=== PATIENT | female | born 1950 | race Caucasian/White ===

== ENCOUNTER 2017-11-05 13:48 | Outpatient (CLI) | payer MEDICARE ==
[2017-11-05] MEDS ORDERED: LEVO75TA PO (14:52)
[2017-11-05] MEDS ORDERED: BIOT5000 PO (14:52)
[2017-11-05] MEDS ORDERED: OMEP20TA5 PO (14:52)
[2017-11-05] MEDS ORDERED: ERGO500014 PO (14:52)
[2017-11-05] MEDS ORDERED: BUPR150T8 PO (14:52)
[2017-11-05] MEDS ORDERED: HERBAL VITAMINS PO (14:52)
[2017-11-05 15:12] LABS: BASOPHILS % (AUTO) 0.5 % (0-1); EOSINOPHILS # (AUTO) 0.4 X10'3 (0-0.9); EOSINOPHILS % (AUTO) 6.3 % (0-6); LYMPHOCYTES # (AUTO) 3.1 X10'3 (1.1-4.8); LYMPHOCYTES % (AUTO) 50.5 % (21-51); MEAN CORPUSCULAR HEMOGLOBIN 31.2 PG (27.0-31.0); MEAN CORPUSCULAR HGB CONC 34.2 % (33.0-36.5); MEAN CORPUSCULAR VOLUME 91.2 FL (78-98); MEAN PLATELET VOLUME 8.2 FL (7.4-10.4); MONOCYTES # (AUTO) 0.5 X10'3 (0-0.9); MONOCYTES % (AUTO) 8.3 % (2-12); NEUTROPHILS # (AUTO) 2.1 X10'3 (1.8-7.7); NEUTROPHILS % (AUTO) 34.4 % (42-75); PRE OP HEMATOCRIT 38.1 % (35.0-45.0); PRE OP PLATELET COUNT 297 X10'3 (140-440); RED BLOOD COUNT 4.18 X10'6 (4.20-5.60)
[2017-11-05 15:22] LABS: HEMOGLOBIN A1C 5.9 % (4.5-6.2)
[2017-11-05 15:24] LABS: PRE OP PROTIME 10.1 SECONDS (9.0-12.0)
[2017-11-05 15:27] LABS: ALBUMIN 3.9 G/DL (3.4-5.0); ALKALINE PHOSPHATASE 57 IU/L (46-116); BLOOD UREA NITROGEN 23 MG/DL (7-18); BUN/CREATININE RATIO 26.4 (6.6-38.0); CALCIUM 9.8 MG/DL (8.5-10.1); CHLORIDE 104 MMOL/L (99-107); CREATININE 0.87 MG/DL (0.40-0.90); PRE OP ALT 37 U/L (30-65); PRE OP ANION GAP 8 (8-16); PRE OP AST 23 U/L (10-37); PRE OP BILIRUB, TOTAL 0.6 MG/DL (0.0-1.0); PRE OP GLUCOSE 94 MG/DL (70-104); PRE OP POTASSIUM 4.3 MMOL/L (3.4-5.1); PRE OP SODIUM 141 MMOL/L (135-145); TOTAL CARBON DIOXIDE 29.2 MMOL/L (24-32); TOTAL PROTEIN 7.8 G/DL (6.4-8.2); eGFR 65 ML/MIN
== END 2017-11-05 23:59 | disposition home or self-care (01) ==
LOC: PRE-OP 13:48 → EDSTATUS 11-11 10:30
PROVIDERS: ATTEND Orthopaedic Surgery
DX: M19.011 Primary osteoarthritis, right shoulder (principal); Z22.322 Carrier or suspected carrier of Methicillin resistant Staphylococcus aureus; Z53.09 Procedure and treatment not carried out because of other contraindication; E11.9 Type 2 diabetes mellitus without complications; E66.9 Obesity, unspecified; Z87.891 Personal history of nicotine dependence
CPT/HCPCS: 36415; 80053; 83036; 85025; 85610; 85730; 87070; 93005

== ENCOUNTER 2017-11-25 10:38 | Outpatient (CLI) | payer MEDICARE ==
[~2017-11-25 10:38] MED LIST: BIOT5000 PO; BUPR150T8 PO; ERGO500014 PO; HERBAL VITAMINS PO; LEVO75TA PO; OMEP20TA5 PO
== END 2017-11-25 23:59 | disposition home or self-care (01) ==
LOC: LAB 10:38
PROVIDERS: ATTEND Orthopaedic Surgery
DX: Z11.2 Encounter for screening for other bacterial diseases (principal); Z22.322 Carrier or suspected carrier of Methicillin resistant Staphylococcus aureus
CPT/HCPCS: 87070

== ENCOUNTER 2017-11-30 14:10 | Inpatient (IN) | payer MEDICARE ==
[~2017-11-30] VITALS: Ht 165.1 cm; Wt 87.2 kg
[~2017-11-30 14:10] MED LIST changes: -BUPR150T8 PO; -ERGO500014 PO; -LEVO75TA PO
[2017-11-30 15:30] LABS: BASOPHILS % (AUTO) 0.4 % (0-1); EOSINOPHILS # (AUTO) 0.3 X10'3 (0-0.9); EOSINOPHILS % (AUTO) 5.5 % (0-6); LYMPHOCYTES # (AUTO) 3.1 X10'3 (1.1-4.8); LYMPHOCYTES % (AUTO) 50.7 % (21-51); MEAN CORPUSCULAR HEMOGLOBIN 31.4 PG (27.0-31.0); MEAN CORPUSCULAR HGB CONC 34.3 % (33.0-36.5); MEAN CORPUSCULAR VOLUME 91.7 FL (78-98); MEAN PLATELET VOLUME 8.1 FL (7.4-10.4); MONOCYTES # (AUTO) 0.4 X10'3 (0-0.9); MONOCYTES % (AUTO) 7.2 % (2-12); NEUTROPHILS # (AUTO) 2.2 X10'3 (1.8-7.7); NEUTROPHILS % (AUTO) 36.2 % (42-75); PRE OP HEMATOCRIT 38.8 % (35.0-45.0); PRE OP HEMOGLOBIN 13.3 g/dL (12.0-16.0); PRE OP PLATELET COUNT 322 X10'3 (140-440); RED BLOOD COUNT 4.24 X10'6 (4.20-5.60); RED CELL DISTRIBUTION WIDTH 13.2 % (11.5-14.5)
[2017-11-30] MEDS ORDERED: CHOL100046 PO (15:36)
[2017-11-30] MEDS ORDERED: LEVO25TA7 PO (15:37)
[2017-11-30] MEDS ORDERED: BUPR100T5 PO (15:38)
[2017-11-30 15:40] LABS: PRE OP PROTIME 10.1 SECONDS (9.0-12.0)
[2017-11-30 15:50] LABS: ALBUMIN 3.9 G/DL (3.4-5.0); ALBUMIN/GLOBULIN RATIO 1.1 (1.1-1.5); ALKALINE PHOSPHATASE 60 IU/L (46-116); BLOOD UREA NITROGEN 18 MG/DL (7-18); CALCIUM 9.6 MG/DL (8.5-10.1); CHLORIDE 104 MMOL/L (99-107); CREATININE 0.82 MG/DL (0.40-0.90); PRE OP ALT 36 U/L (30-65); PRE OP ANION GAP 9 (8-16); PRE OP AST 22 U/L (10-37); PRE OP BILIRUB, TOTAL 0.7 MG/DL (0.0-1.0); PRE OP GLUCOSE 99 MG/DL (70-104); PRE OP POTASSIUM 3.8 MMOL/L (3.4-5.1); PRE OP SODIUM 140 MMOL/L (135-145); TOTAL CARBON DIOXIDE 27.3 MMOL/L (24-32); TOTAL PROTEIN 7.5 G/DL (6.4-8.2); eGFR 69 ML/MIN
[2017-12-01] VITALS (18 sets, daily range): BP systolic 97–144; BP diastolic 52–94
[2017-12-01] MEDS ORDERED: ringers solution, lacted 1,000 ML IV SCH ×2 (05:00→09:30)
[2017-12-01] MEDS ORDERED: famotidine 20mg tablet PO ONE (05:30)
[2017-12-01] MEDS ORDERED: acetaminophen 325mg tablet PO ONE (05:30)
[2017-12-01] MEDS ORDERED: oxyCODONE SR 10mg (sust. release) tab PO ONE (05:30)
[2017-12-01] MEDS ORDERED: ceFAZolin 2gm in dextrose, iso 100 ML IV ONE (05:30)
[2017-12-01] MEDS ORDERED: gabapentin 300mg capsule PO ONE (05:30)
[2017-12-01] MEDS ORDERED: vancomycin inj 1,500 MG in normal saline 300ml IV soln IV ONE (05:30)
[2017-12-01] MEDS ORDERED: tranexamic acid inj. 1,000 MG in normal saline 100ml IV soln 90 ML IV ONE (05:30)
[2017-12-01] MEDS ORDERED: metoclopramide 5 mg/ml inj IV ONE (05:30)
[2017-12-01] MEDS ORDERED: LIDOcaine 1% (10mg/ml) 2ml vial ONE (05:53)
[2017-12-01] MEDS ORDERED: ceFAZolin 1000mg inj ONE (06:37)
[2017-12-01] MEDS ORDERED: BUPIVAcaine 0.5% inj/PF 30 ml vial ONE (07:13)
[2017-12-01] MEDS ORDERED: BUPIVAcaine/PF 2.5 mg/ml (0.25%) 30ml vial ONE (07:13)
[2017-12-01] MEDS ORDERED: midazolam 2 mg/2 ml injection ONE ×2 (07:15)
[2017-12-01] MEDS ORDERED: fentaNYL /PF 50mcg/ml 5ml ampule ONE (07:15)
[2017-12-01] MEDS ORDERED: LIDOcaine 1%/PF (10mg/ml) 5ml vial ONE (07:17)
[2017-12-01] MEDS ORDERED: propofol inj 20 ML IV ONE (07:18)
[2017-12-01] MEDS ORDERED: sevoflurane 250ml liquid IH ONE (07:47)
[2017-12-01] MEDS ORDERED: glycopyrrolate 0.2mg/ml inj ONE (07:47)
[2017-12-01] MEDS ORDERED: Thrombin (Bovine) 5,000 unit vial TP ONE (08:30)
[2017-12-01] MEDS ORDERED: proCHLORperazine 10 MG/2 ml inj IV PRN (09:30)
[2017-12-01] MEDS ORDERED: ondansetron/PF 4mg/2ml inj IV PRN ×2 (09:30→09:55)
[2017-12-01] MEDS ORDERED: meperidine/PF 50mg/ml syringe IV PRN ×3 (09:30)
[2017-12-01] MEDS ORDERED: morphine 4 MG/ML inj SYRINge IV PRN ×2 (09:30)
[2017-12-01] MEDS ORDERED: dexamethasone sod phosphate 4mg/ml inj. ONE (09:31)
[2017-12-01] MEDS ORDERED: epiNEPHrine 1 mg/ml inj ONE (09:32)
[2017-12-01] MEDS ORDERED: vancomycin 1,000mg inj ONE ×2 (09:37→11:18)
[2017-12-01] MEDS ORDERED: ondansetron/PF 4mg/2ml inj ONE (09:53)
[2017-12-01] MEDS ORDERED: diphenhydrAMINE 25mg capsule PO PRN ×2 (09:55)
[2017-12-01] MEDS ORDERED: oxyCODONE IR 5mg (immed. release) tablet PO PRN (09:55)
[2017-12-01] MEDS: potassium cl 20mEq in 1/2 NS 1,000 ML IV SCH ×2 (09:55→20:55)
[2017-12-01] MEDS ORDERED: HYDROmorphone inj. 0.5 MG/0.5 ML DISP.SYRIN IV PRN (09:55)
[2017-12-01] MEDS ORDERED: bisacodyl 10mg suppository rectal RC PRN (09:55)
[2017-12-01] MEDS ORDERED: acetaminophen 325mg tablet PO PRN (09:55)
[2017-12-01] MEDS ORDERED: magnesium hydroxide 30ml (MOM) UD suspension PO PRN (09:55)
[2017-12-01] MEDS ORDERED: tranexamic acid inj. 870 MG in normal saline 100ml IV soln 100 ML IV ONE (13:00)
[2017-12-01] MEDS: acetaminophen 325mg tablet PO SCH ×2 (14:23→20:53)
[2017-12-01] MEDS: gabapentin 300mg capsule PO SCH ×2 (14:23→20:54)
[2017-12-01] MEDS: ceFAZolin 1GM/D5W- ADD-VANTAGE 50 ML IV SCH (15:44)
[2017-12-01] MEDS ORDERED: vancomycin/NS 1 GM ADD-VANTAGE 250 ML IV SCH (20:00)
[2017-12-01] MEDS: sennosides 8.6mg tablet PO SCH (20:54)
[2017-12-02] MEDS: ceFAZolin 1GM/D5W- ADD-VANTAGE 50 ML IV SCH (00:32)
[2017-12-02] MEDS: potassium cl 20mEq in 1/2 NS 1,000 ML IV SCH (01:55)
[2017-12-02 02:30] VITALS: BP 104/48
[2017-12-02] MEDS: acetaminophen 325mg tablet PO SCH ×4 (03:00→20:10)
[2017-12-02 06:00] VITALS: BP 113/75
[2017-12-02 06:18] LABS: BASOPHILS % (AUTO) 0.2 % (0-1); EOSINOPHILS # (AUTO) 0.1 X10'3 (0-0.9); EOSINOPHILS % (AUTO) 1.7 % (0-6); HEMATOCRIT 31.6 % (35.0-45.0); HEMOGLOBIN 10.8 g/dl (12.0-16.0); LYMPHOCYTES # (AUTO) 2.3 X10'3 (1.1-4.8); LYMPHOCYTES % (AUTO) 33.7 % (21-51); MEAN CORPUSCULAR HEMOGLOBIN 31.5 PG (27.0-31.0); MEAN CORPUSCULAR HGB CONC 34.1 % (33.0-36.5); MEAN CORPUSCULAR VOLUME 92.3 FL (78-98); MEAN PLATELET VOLUME 8.1 FL (7.4-10.4); MONOCYTES # (AUTO) 0.7 X10'3 (0-0.9); MONOCYTES % (AUTO) 10.5 % (2-12); NEUTROPHILS # (AUTO) 3.7 X10'3 (1.8-7.7); NEUTROPHILS % (AUTO) 53.9 % (42-75); PLATELET COUNT 216 X10'3 (140-440); RED BLOOD COUNT 3.42 X10'6 (4.20-5.60); RED CELL DISTRIBUTION WIDTH 12.9 % (11.5-14.5); WHITE BLOOD COUNT 6.9 X10'3 (4.5-11.0)
[2017-12-02 06:54] LABS: ANION GAP 8 (8-16); CHLORIDE 108 MMOL/L (99-107); POTASSIUM 4.2 MMOL/L (3.5-5.1); SODIUM 142 MMOL/L (135-145); TOTAL CARBON DIOXIDE 26.4 MMOL/L (24-32)
[2017-12-02] MEDS ORDERED: aspirin 325mg tablet ONE (07:04)
[2017-12-02] MEDS: pantoprazole 40mg Tablet.DR PO SCH (07:07)
[2017-12-02] MEDS: vitamin D (cholecalciferol) 1,000 unit tablet PO SCH (07:08)
[2017-12-02] MEDS: aspirin 325mg tablet PO SCH (07:08)
[2017-12-02] MEDS: gabapentin 300mg capsule PO SCH ×3 (07:09→20:10)
[2017-12-02] MEDS: levoTHYROXINE 25mcg tablet PO SCH (07:09)
[2017-12-02] MEDS: buPROPion SR 100mg tab PO SCH (07:09)
[2017-12-02 10:00] VITALS: BP 125/62
[2017-12-02] MEDS: [UNRECOGNIZED DRUG - REMARK] PO NR (10:50)
[2017-12-02] MEDS: oxyCODONE IR 5mg (immed. release) tablet PO PRN ×3 (11:23→20:10)
[2017-12-02] MEDS: HYDROmorphone inj. 0.5 MG/0.5 ML DISP.SYRIN IV PRN ×2 (12:41→16:56)
[2017-12-02 14:00] VITALS: BP 122/65
[2017-12-02 17:00] VITALS: BP 145/56
[2017-12-02] MEDS: celeCOXIB 100mg capsule PO SCH (20:09)
[2017-12-02] MEDS: sennosides 8.6mg tablet PO SCH (20:10)
[2017-12-02 22:00] VITALS: BP 105/63
[2017-12-03] MEDS: acetaminophen 325mg tablet PO SCH ×2 (02:00→08:00)
[2017-12-03] MEDS: oxyCODONE IR 5mg (immed. release) tablet PO PRN (05:23)
[2017-12-03 05:43] LABS: BASOPHILS % (AUTO) 0.4 % (0-1); EOSINOPHILS # (AUTO) 0.4 X10'3 (0-0.9); EOSINOPHILS % (AUTO) 6.2 % (0-6); HEMATOCRIT 33.1 % (35.0-45.0); HEMOGLOBIN 11.2 g/dl (12.0-16.0); LYMPHOCYTES # (AUTO) 2.3 X10'3 (1.1-4.8); LYMPHOCYTES % (AUTO) 36.7 % (21-51); MEAN CORPUSCULAR HEMOGLOBIN 31.2 PG (27.0-31.0); MEAN CORPUSCULAR HGB CONC 33.9 % (33.0-36.5); MEAN CORPUSCULAR VOLUME 91.9 FL (78-98); MONOCYTES # (AUTO) 0.7 X10'3 (0-0.9); MONOCYTES % (AUTO) 10.9 % (2-12); NEUTROPHILS # (AUTO) 2.9 X10'3 (1.8-7.7); NEUTROPHILS % (AUTO) 45.8 % (42-75); PLATELET COUNT 219 X10'3 (140-440); RED CELL DISTRIBUTION WIDTH 12.9 % (11.5-14.5); WHITE BLOOD COUNT 6.4 X10'3 (4.5-11.0)
[2017-12-03 06:00] VITALS: BP 128/72
[2017-12-03] MEDS: [UNRECOGNIZED DRUG - REMARK] PO NR (06:33)
[2017-12-03] MEDS: aspirin 325mg tablet PO SCH (07:58)
[2017-12-03] MEDS: vitamin D (cholecalciferol) 1,000 unit tablet PO SCH (07:58)
[2017-12-03] MEDS: gabapentin 300mg capsule PO SCH (07:59)
[2017-12-03] MEDS: buPROPion SR 100mg tab PO SCH (07:59)
[2017-12-03] MEDS: pantoprazole 40mg Tablet.DR PO SCH (07:59)
[2017-12-03] MEDS: levoTHYROXINE 25mcg tablet PO SCH (08:01)
[2017-12-03] MEDS: celeCOXIB 100mg capsule PO SCH (08:01)
[2017-12-03] MEDS ORDERED: acetaminophen 325mg tablet PO PRN (09:55)
== END 2017-12-03 11:50 | disposition home health service (06) | DRG 483 ==
LOC: EDSTATUS 14:10 → PAS IN 12-01 05:27 → EDSTATUS 12-01 07:30 → ORTHO 4S 12-01 11:05
PROVIDERS: ADMIT Orthopaedic Surgery; ATTEND Orthopaedic Surgery
PROC: 3E0T3BZ Introduction of Anesthetic Agent into Peripheral Nerves and Plexi, Percutaneous Approach (ICD-10-PCS; 2017-12-01)
PROC: 0RRJ0JZ Replacement of Right Shoulder Joint with Synthetic Substitute, Open Approach (ICD-10-PCS; principal; 2017-12-01 07:44)
DX: M19.011 Primary osteoarthritis, right shoulder (principal); D62 Acute posthemorrhagic anemia; E03.9 Hypothyroidism, unspecified; K21.9 Gastro-esophageal reflux disease without esophagitis; F32.9 Major depressive disorder, single episode, unspecified; Z79.899 Other long term (current) drug therapy; Z87.891 Personal history of nicotine dependence
CPT/HCPCS: 0232T; 36415; 73020; 80051; 80053; 85025; 85610; 85730; 97110; 97116; 97161; 97530; A4565; A7000; C1713; C1776; J0171; J0690; J1100; J1170; J2001; J2250; J2405; J2704; J2765; J3010; J3370; J3490; J7030; J7120

== ENCOUNTER 2023-09-01 15:41 | Observation (INO) | payer MEDICARE ==
[~2023-09-01] VITALS: Ht 165.1 cm; Wt 94.5 kg
[~2023-09-01 15:41] MED LIST changes: +BUPR100T5 PO; +CHOL100046 PO; +LEVO25TA7 PO; +OMEP20TA43 PO; -OMEP20TA5 PO
[2023-09-01 17:15] LABS: BILIRUBIN,URINE NEGATIVE (Neg); CLARITY,URINE SLIGHTLY CLOUDY (Clear); COLOR,URINE YELLOW (Yellow); GLUCOSE, URINE NEGATIVE (Neg); KETONES,URINE NEGATIVE (Neg); LEUKOCYTE ESTERASE ,URINE SMALL (Neg); NITRITES, URINE POSITIVE (Neg); OCCULT BLOOD,URINE MODERATE (Neg); PROTEIN,URINE NEGATIVE (Neg); UROBILINOGEN,URINE 0.2 E.U/dL (0.2-1.0)
[2023-09-01 17:22] LABS: MUCUS STRANDS MODERATE /LPF (Neg); SQUAMOUS EPITHELIAL CELL,UR MANY /LPF (FEW); WBC CLUMPS,URINE MODERATE /HPF (NEGATIVE); WBC,URINE 50-100 /HPF (0-4)
[2023-09-01 17:23] LABS: BACTERIA,URINE 2+ /HPF (Neg); RBC,URINE TNTC /HPF (0-2); TRANSITIONAL EPI CELLS,URINE FEW /HPF
[2023-09-01 17:28] LABS: UA COLLECTION TYPE CLN CATCH MIDSTREAM
[2023-09-01] MEDS: CefTRIAXone 2gm/D5W 50ml BAG 50 ML IV ONE (17:31)
[2023-09-01 17:41] LABS: BASOPHILS % (AUTO) 0.4 % (0-1); EOSINOPHILS # (AUTO) 0.1 X10'3 (0-0.9); HEMATOCRIT 34.2 % (35.0-45.0); HEMOGLOBIN 11.5 g/dl (12.0-16.0); LYMPHOCYTES # (AUTO) 2.5 X10'3 (1.1-4.8); LYMPHOCYTES % (AUTO) 33.9 % (21-51); MEAN CORPUSCULAR HEMOGLOBIN 30.7 PG (27.0-31.0); MEAN CORPUSCULAR HGB CONC 33.8 g/dL (33.0-36.5); MEAN PLATELET VOLUME 8.1 FL (7.4-10.4); MONOCYTES # (AUTO) 0.5 X10'3 (0-0.9); MONOCYTES % (AUTO) 7.5 % (2-12); NEUTROPHILS # (AUTO) 4.2 X10'3 (1.8-7.7); NEUTROPHILS % (AUTO) 57.2 % (42-75); PLATELET COUNT 306 X10'3 (140-440); RED BLOOD COUNT 3.76 X10'6 (4.20-5.60); WHITE BLOOD COUNT 7.3 X10'3 (4.5-11.0)
[2023-09-01 17:56] LABS: ALANINE AMINOTRANSFERASE 36 U/L (12-78); ALBUMIN 3.4 G/DL (3.4-5.0); ALBUMIN/GLOBULIN RATIO 0.9 (1.1-1.5); ALKALINE PHOSPHATASE 59 IU/L (46-116); ANION GAP 7 (8-16); ASPARTATE AMINO TRANSFERASE 33 U/L (10-37); BILIRUBIN,TOTAL 0.4 MG/DL (0.1-1.0); BLOOD UREA NITROGEN 18 MG/DL (7-18); BUN/CREATININE RATIO 17.3 (10.0-20.0); CALCIUM 8.9 MG/DL (8.5-10.1); CHLORIDE 101 MMOL/L (99-107); CREATININE 1.04 MG/DL (0.40-0.90); GLUCOSE 103 MG/DL (70-104); POTASSIUM 3.8 MMOL/L (3.5-5.1); SODIUM 134 MMOL/L (135-145); TOTAL CARBON DIOXIDE 26.3 MMOL/L (24-32); TOTAL PROTEIN 7.2 G/DL (6.4-8.2); eCRCL 43 ML/MIN; eGFR 52 ML/MIN
[2023-09-01 18:03] LABS: MAGNESIUM 2.3 MG/DL (1.5-2.4); PRO BRAIN NATRIURETIC PEPTIDE 127 PG/ML (0-125)
[2023-09-01] MEDS ORDERED: iohexol 300mg/ml 100ml inj. ONE (20:17)
[2023-09-01] MEDS ORDERED: temazepam 15mg capsule PO PRN (21:00)
[2023-09-01] MEDS ORDERED: acetaminophen 325mg tablet PO PRN (22:40)
[2023-09-01] MEDS ORDERED: magnesium 2GM in 50ml NS 50 ML IV PRN (22:40)
[2023-09-01] MEDS ORDERED: HYDROcodone/acetaminophen 5mg/325mg tablet PO PRN (22:40)
[2023-09-01] MEDS ORDERED: morphine 2 MG/ML inj. syringe IV PRN ×2 (22:40)
[2023-09-01] MEDS ORDERED: potassium Cl 20 mEq SR tablet PO PRN ×2 (22:40)
[2023-09-01] MEDS ORDERED: potassium Cl 40MEQ/1/2NS 520ml 520 ML IV PRN (22:40)
[2023-09-01] MEDS ORDERED: magnesium 4gm in 100ml NS 100 ML IV PRN (22:40)
[2023-09-01] MEDS ORDERED: magnesium Cl slow-release 64mg tablet PO PRN (22:40)
[2023-09-01] MEDS ORDERED: ondansetron/PF 4mg/2ml inj IV PRN (22:40)
[2023-09-02] MEDS ORDERED: IBUP-1984 PO (00:30)
[2023-09-02 03:49] LABS: BASOPHILS % (AUTO) 0.3 % (0-1); EOSINOPHILS # (AUTO) 0.1 X10'3 (0-0.9); EOSINOPHILS % (AUTO) 1.7 % (0-6); HEMATOCRIT 31.6 % (35.0-45.0); HEMOGLOBIN 10.5 g/dl (12.0-16.0); LYMPHOCYTES # (AUTO) 2.1 X10'3 (1.1-4.8); LYMPHOCYTES % (AUTO) 38.7 % (21-51); MEAN CORPUSCULAR HEMOGLOBIN 30.5 PG (27.0-31.0); MEAN CORPUSCULAR HGB CONC 33.1 g/dL (33.0-36.5); MEAN CORPUSCULAR VOLUME 92.2 FL (78-98); MEAN PLATELET VOLUME 8.4 FL (7.4-10.4); MONOCYTES # (AUTO) 0.5 X10'3 (0-0.9); MONOCYTES % (AUTO) 9.7 % (2-12); NEUTROPHILS # (AUTO) 2.7 X10'3 (1.8-7.7); NEUTROPHILS % (AUTO) 49.6 % (42-75); PLATELET COUNT 239 X10'3 (140-440); RED BLOOD COUNT 3.43 X10'6 (4.20-5.60); RED CELL DISTRIBUTION WIDTH 12.9 % (11.5-14.5); WHITE BLOOD COUNT 5.4 X10'3 (4.5-11.0)
[2023-09-02 04:36] LABS: ALANINE AMINOTRANSFERASE 31 U/L (12-78); ALBUMIN 3.1 G/DL (3.4-5.0); ALBUMIN/GLOBULIN RATIO 0.8 (1.1-1.5); ALKALINE PHOSPHATASE 57 IU/L (46-116); ANION GAP 8 (8-16); ASPARTATE AMINO TRANSFERASE 39 U/L (10-37); BILIRUBIN,TOTAL 0.3 MG/DL (0.1-1.0); BLOOD UREA NITROGEN 24 MG/DL (7-18); BUN/CREATININE RATIO 23.8 (10.0-20.0); CALCIUM 9.4 MG/DL (8.5-10.1); CHLORIDE 100 MMOL/L (99-107); CREATININE 1.01 MG/DL (0.40-0.90); GLUCOSE 122 MG/DL (70-104); POTASSIUM 4.3 MMOL/L (3.5-5.1); SODIUM 134 MMOL/L (135-145); TOTAL CARBON DIOXIDE 26.2 MMOL/L (24-32); TOTAL PROTEIN 6.8 G/DL (6.4-8.2); eCRCL 45 ML/MIN; eGFR 54 ML/MIN
[2023-09-02 07:55] VITALS: RESP 16; O2SAT 97
[2023-09-02] MEDS: K and/or MAG REPLACEMENT MC SCH (08:00)
[2023-09-02] MEDS: CefTRIAXone 2gm/D5W 50ml BAG 50 ML IV SCH (09:08)
[2023-09-02 10:00] VITALS: BP 134/65; PULSE 75; RESP 16; TEMP 98.6; O2SAT 96
[2023-09-02 18:00] VITALS: BP 161/70; PULSE 74; RESP 18; TEMP 97.3; O2SAT 95
[2023-09-02 20:00] VITALS: RESP 18; O2SAT 95
[2023-09-02 22:00] VITALS: BP 143/69; PULSE 73; RESP 13; TEMP 97.4; O2SAT 96
[2023-09-03 06:00] VITALS: BP 175/106; PULSE 77; RESP 19; TEMP 97.5; O2SAT 96
[2023-09-03 07:12] LABS: BASOPHILS % (AUTO) 0.5 % (0-1); EOSINOPHILS # (AUTO) 0.1 X10'3 (0-0.9); EOSINOPHILS % (AUTO) 2.3 % (0-6); HEMATOCRIT 34.6 % (35.0-45.0); HEMOGLOBIN 11.6 g/dl (12.0-16.0); LYMPHOCYTES # (AUTO) 2.6 X10'3 (1.1-4.8); LYMPHOCYTES % (AUTO) 46.7 % (21-51); MEAN CORPUSCULAR HEMOGLOBIN 30.8 PG (27.0-31.0); MEAN CORPUSCULAR HGB CONC 33.5 g/dL (33.0-36.5); MEAN CORPUSCULAR VOLUME 91.9 FL (78-98); MEAN PLATELET VOLUME 8.9 FL (7.4-10.4); MONOCYTES # (AUTO) 0.6 X10'3 (0-0.9); MONOCYTES % (AUTO) 10.6 % (2-12); NEUTROPHILS # (AUTO) 2.2 X10'3 (1.8-7.7); NEUTROPHILS % (AUTO) 39.9 % (42-75); PLATELET COUNT 315 X10'3 (140-440); RED BLOOD COUNT 3.76 X10'6 (4.20-5.60); RED CELL DISTRIBUTION WIDTH 12.7 % (11.5-14.5); WHITE BLOOD COUNT 5.5 X10'3 (4.5-11.0)
[2023-09-03 07:28] LABS: % IRON SATURATION 13 % (11-46); IRON 46 UG/DL (49-151); TOTAL IRON BINDING CAPACITY 361 UG/DL (259-388)
[2023-09-03 07:35] LABS: ALANINE AMINOTRANSFERASE 32 U/L (12-78); ALBUMIN 3.3 G/DL (3.4-5.0); ALBUMIN/GLOBULIN RATIO 0.8 (1.1-1.5); ALKALINE PHOSPHATASE 55 IU/L (46-116); ANION GAP 9 (8-16); ASPARTATE AMINO TRANSFERASE 24 U/L (10-37); BILIRUBIN,TOTAL 0.4 MG/DL (0.1-1.0); BLOOD UREA NITROGEN 25 MG/DL (7-18); CALCIUM 9.4 MG/DL (8.5-10.1); CHLORIDE 101 MMOL/L (99-107); CREATININE 0.96 MG/DL (0.40-0.90); FERRITIN 14 NG/ML (8-252); GLUCOSE 111 MG/DL (70-104); MAGNESIUM 2.1 MG/DL (1.5-2.4); POTASSIUM 4.4 MMOL/L (3.5-5.1); SODIUM 137 MMOL/L (135-145); TOTAL PROTEIN 7.2 G/DL (6.4-8.2); eCRCL 47 ML/MIN; eGFR 57 ML/MIN
[2023-09-03 08:00] VITALS: RESP 19; O2SAT 96
[2023-09-03 10:00] VITALS: BP 151/73; PULSE 98; RESP 16; TEMP 98.7; O2SAT 98
[2023-09-03 15:37] VITALS: BP_SYST 172; BP_SYST 182; BP_SYST 195; BP_DIAS 84; BP_DIAS 95; BP_DIAS 96; PULSE 75; PULSE 77; PULSE 83
== END 2023-09-03 19:00 | disposition home or self-care (01) ==
LOC: ER 15:41 → UNDOADMIN 22:40 → ED HOLD 22:40 → INTOOBSV 23:10 → ORTHO 4S 09-02 06:55
PROVIDERS: ADMIT Internal Medicine; ATTEND Internal Medicine
DX: R31.9 Hematuria, unspecified (principal); F31.9 Bipolar disorder, unspecified; N12 Tubulo-interstitial nephritis, not specified as acute or chronic; K44.9 Diaphragmatic hernia without obstruction or gangrene; K57.90 Diverticulosis of intestine, part unspecified, without perforation or abscess without bleeding; M19.90 Unspecified osteoarthritis, unspecified site; E03.9 Hypothyroidism, unspecified; Z87.891 Personal history of nicotine dependence; Z90.710 Acquired absence of both cervix and uterus; Z90.49 Acquired absence of other specified parts of digestive tract; Z79.899 Other long term (current) drug therapy
CPT/HCPCS: 36415; 70551; 71045; 74177; 80053; 81001; 82607; 82728; 83540; 83550; 83605; 83735; 83880; 84145; 84484; 85025; 87040; 87081; 93005; 96365; 96366; 99285; A6209; G0378; J0696; J3490; J7040; Q9967; 84132; C1758